=== PATIENT | male | born 1960 | race American Indian/Alaskan Native ===

== ENCOUNTER 2022-06-04 15:50 | Inpatient (IN) | payer MEDICARE, OTHER ==
[2022-06-04] MEDS ORDERED: SODIUM CHLORIDE 0.9% 1000 ML 1,000 ML IV ONE (16:30)
--- NOTE | 2022-06-04 16:38 | Emergency Department Report ---
ED GI Bleed HPI - General Chief complaint: GI Bleed Stated complaint: SPITTING UP BLOOD Time Seen by Provider: 06/04/22 16:05 Source: EMS Mode of arrival: Stretcher Limitations: No Limitations - History of Present Illness Initial comments: Patient is a 61-year-old male presenting to ED with complaint of gross hematemesis beginning today. States he has history of "busted blood vessel in his lungs "that occurred 3 years ago requiring blood transfusion and surgical procedure at [place] 3 years ago. He denies any abdominal pain or history of liver disease. He is not on blood thinners. - Related Data Previous Rx's Medication Instructions Recorded Last Taken Type Albuterol Mdi (or & Nicu Only) 2 puff IH QID PRN #1 inhalation 04/17/15 Unknown Rx [ProAir HFA Inhaler] levoFLOXacin [Levaquin TAB] 750 mg PO Q24HR #2 tablet 06/22/16 Unknown Rx Allergies Allergy/AdvReac Type Severity Reaction Status Date / Time No Known Allergies Allergy Verified 06/04/22 16:00 ED Review of Systems ROS: Stated complaint: SPITTING UP BLOOD Other details as noted in HPI Constitutional: denies: chills, fever Respiratory: denies: cough, shortness of breath, wheezing Cardiovascular: denies: chest pain, palpitations Gastrointestinal: hematemesis. denies: abdominal pain Genitourinary: denies: urgency, dysuria Musculoskeletal: denies: back pain, joint swelling, arthralgia Skin: denies: rash, lesions Neurological: denies: headache, weakness, paresthesias Psychiatric: denies: anxiety, depression ED Past Medical Hx - Past Medical History Hx Hypertension: Yes Hx Congestive Heart Failure: No Hx Diabetes: Yes Hx Asthma: No Hx COPD: Yes Hx HIV: No Additional medical history: TB 2004 - Surgical History Additional Surgical History: Fixed ruptured blood vessels in lung - Social History Smoking Status: Former Smoker Substance Use Type: None - Medications Home Medications: Home Medications Medication Instructions Recorded Confirmed Last Taken Type Albuterol Mdi (or & Nicu Only) 2 puff IH QID PRN #1 inhalation 04/17/15 Unknown Rx [ProAir HFA Inhaler] levoFLOXacin [Levaquin TAB] 750 mg PO Q24HR #2 tablet 06/22/16 Unknown Rx ED Physical Exam - General Limitations: No Limitations General appearance: alert, in no apparent distress - Head Head exam: Present: atraumatic, normocephalic - Eye Pupils: Present: other (Dried blood on lips, blood in oropharynx) - Respiratory Respiratory exam: Present: normal lung sounds bilaterally. Absent: respiratory distress - Cardiovascular Cardiovascular Exam: Present: normal rhythm, tachycardia, normal heart sounds - GI/Abdominal GI/Abdominal exam: Present: soft. Absent: distended, tenderness - Rectal Rectal exam: Present: deferred - Neurological Exam Neurological exam: Present: alert, oriented X3 - Psychiatric Psychiatric exam: Present: normal affect, normal mood - Skin Skin exam: Present: warm, dry, intact, normal color ED Course Vital Signs 06/04/22 06/04/22 06/04/22 15:56 20:11 20:13 Temperature 97.5 F L Pulse Rate 116 H 90 Respiratory 18 18 Rate Blood Pressure 260/120 117/78 [Left] O2 Sat by Pulse 99 97 98 Oximetry ED Medical Decision Making - Lab Data Result diagrams: 06/04/22 16:10 06/04/22 16:10 - Medical Decision Making H&H 13 and 40. Labs are grossly unremarkable. Patient given 1 L saline bolus and started on Protonix drip. CTA chest, abdomen and pelvis unremarkable. I discussed case with on-call GI physician . Patient is currently stable. States he will evaluate patient in the morning for endoscopy. Will admit to hospitalist. Critical care attestation.: If time is entered above; I have spent that time in minutes in the direct care of this critically ill patient, excluding procedure time. ED Disposition Clinical Impression: Upper GI bleed, Hematemesis Disposition: ADMITTED INPATIENT Is pt being admited?: Yes Condition: Stable
[2022-06-04 16:45] LABS: Basophils # (Auto) 0.1 K/mm3 (0.0-0.1); Basophils % (Auto) 0.9 % (0.0-1.8); Eosinophils # (Auto) 0.3 K/mm3 (0.0-0.4); Eosinophils % (Auto) 4.4 % (0.0-4.3); Hematocrit 40.3 % (35.5-45.6); Hemoglobin 13.1 gm/dl (11.8-15.2); Lymphocytes # (Auto) 3.1 K/mm3 (1.2-5.4); Lymphocytes % (Auto) 43.3 % (13.4-35.0); Mean Corpuscular HGB Conc 32 % (32-34); Mean Corpuscular Volume 92 fl (84-94); Monocytes # (Auto) 0.9 K/mm3 (0.0-0.8); Monocytes % (Auto) 13.2 % (0.0-7.3); Platelet Count 291 K/mm3 (140-440); Red Blood Count 4.37 M/mm3 (3.65-5.03); Red Cell Distribution Width 14.3 % (13.2-15.2)
[2022-06-04 16:48] LABS: INR 0.92 (0.87-1.13)
[2022-06-04 16:49] LABS: Partial Thromboplastin Time 25.2 Sec. (24.2-36.6)
[2022-06-04 16:56] LABS: Alanine Aminotransferase 34 units/L (7-56); Albumin 4.2 g/dL (3.9-5); BUN/Creatinine Ratio 9; Blood Urea Nitrogen 8 mg/dL (9-20); Calcium 8.9 mg/dL (8.4-10.2); Hemolysis Index 5
--- NOTE | 2022-06-04 18:27 | Cat Scan Report ---
CTA CHEST WITH CONTRAST INDICATION / CLINICAL INFORMATION: Hemoptysis versus hematemesis. TECHNIQUE: Axial CT images were obtained through the chest after injection of 75 mL Omnipaque 350 IV contrast. 3 plane MIP and/or 3D reconstructions were produced. All CT scans at this location are perf ormed using CT dose reduction for ALARA by means of automated exposure control. COMPARISON: CT dated 06/19/2016 and 08/03/2015 FINDINGS: PULMONARY EMBOLUS: None. Main pulmonary artery is dilated measuring 3.7 cm in transverse dimension, u nchanged. THORACIC AORTA: No significant abnormality. HEART: No significant abnormality. CORONARY ARTERY CALCIFICATION: Present -- Mild. MEDIASTINUM / MERLE: Mildly prominent mediastinal lymph nodes are unchanged and may be reactive. PLEURA: No pleural effusion. No pneumothorax. LUNGS: Postoperative findings related to previous right upper lobe surgery appears similar to previou s studies. There is scarring versus atelectasis in the right upper lobe with bronchiectasis and fibro sis. Mild left upper lobe bronchiectasis and fibrosis is unchanged. Lower lobes demonstrate mild subp leural scarring but no acute airspace disease. ADDITIONAL FINDINGS: None. UPPER ABDOMEN: No acute findings. SKELETAL STRUCTURES: No significant osseous abnormality. IMPRESSION: 1. No CT evidence for pulmonary embolism. 2. Moderate lobe postsurgical findings and scarring appears unchanged since prior studies. Left upper lobe scarring and fibrosis also appears unchanged. 3. No acute pneumonia. Signer Name: Erika Kraus MD Signed: 06/04/2022 6:23 PM Workstation Name: [id number]
--- NOTE | 2022-06-04 18:30 | Cat Scan Report ---
CTA ABDOMEN AND PELVIS WITHOUT AND WITH CONTRAST INDICATION / CLINICAL INFORMATION: Hemoptysis versus hematemesis. Rule out GI bleed. TECHNIQUE: Axial CT images were obtained through the abdomen and pelvis with injection of 100 mL Omni paque 350 IV contrast. 3 plane MIP / 3D reconstructions were produced. All CT scans at this location are performed using CT dose reduction for ALARA by means of automated exposure control. COMPARISON: CTA chest dated 06/19/16. No prior abdomen for comparison. FINDINGS: AORTA: No significant abnormality. RENAL ARTERIES: No significant abnormality. CELIAC ARTERY: No significant abnormality. SUPERIOR MESENTERIC ARTERY: No significant abnormality. INFERIOR MESENTERIC ARTERY: No significant abnormality. RIGHT ILIAC ARTERIES: Mild atherosclerosis.. LEFT ILIAC ARTERIES: Mild atherosclerosis.. ADDITIONAL FINDINGS: No acute bowel abnormality. No gastrointestinal bleed is identified. SKELETAL: No significant abnormality. IMPRESSION: 1. No arterial abnormality of the abdomen or pelvis. 2. No gastric intestinal bleeding identified. Signer Name: Erika Kraus MD Signed: 06/04/2022 6:26 PM Workstation Name: [id number]
[2022-06-04] MEDS ORDERED: ACETAMINOPHEN 325 MG TAB PO PRN ×2 (21:02→23:52)
[2022-06-04] MEDS ORDERED: ONDANSETRON 4 MG/2 ML INJ IV PRN ×2 (21:02→23:52)
[2022-06-04] MEDS ORDERED: MORPHINE 4 MG/1 ML INJ IV PRN (21:02)
[2022-06-04] MEDS ORDERED: MORPHINE 2 MG/1 ML INJ IV PRN (21:02)
[2022-06-04] MEDS: PANTOPRAZOLE 80 MG in SODIUM CHLORIDE 0.9% 100 ML IV SCH (22:59)
[2022-06-05 00:51] LABS: Hematocrit 37.3 % (35.5-45.6); Hemoglobin 12.1 gm/dl (11.8-15.2)
[2022-06-05] MEDS: SODIUM CHLORIDE 0.9% 1000 ML 1,000 ML IV SCH ×2 (02:27→13:31)
[2022-06-05 05:59] LABS: Basophils % (Auto) 0.4 % (0.0-1.8); Eosinophils # (Auto) 0.1 K/mm3 (0.0-0.4); Eosinophils % (Auto) 2.8 % (0.0-4.3); Hematocrit 39.8 % (35.5-45.6); Hemoglobin 12.9 gm/dl (11.8-15.2); Lymphocytes # (Auto) 1.6 K/mm3 (1.2-5.4); Lymphocytes % (Auto) 32.5 % (13.4-35.0); Mean Corpuscular HGB Conc 32 % (32-34); Mean Corpuscular Volume 92 fl (84-94); Monocytes # (Auto) 0.6 K/mm3 (0.0-0.8); Monocytes % (Auto) 12.4 % (0.0-7.3); Platelet Count 235 K/mm3 (140-440); Red Blood Count 4.32 M/mm3 (3.65-5.03); Red Cell Distribution Width 14.2 % (13.2-15.2)
[2022-06-05 06:19] LABS: Alanine Aminotransferase 29 units/L (7-56); Albumin 3.8 g/dL (3.9-5); BUN/Creatinine Ratio 8; Blood Urea Nitrogen 7 mg/dL (9-20); Calcium 8.8 mg/dL (8.4-10.2); Hemolysis Index 4
--- NOTE | 2022-06-05 07:34 | History and Physical Report ---
History of Present Illness Date of examination: 06/04/22 Date of admission: 06/04/22 21:02 Chief complaint: Complains of vomiting blood 1 hour ago History of present illness: 60-year-old male comes into the emergency room for vomiting blood which is copious. Patient has a history of vomiting blood in the past which she attributes to pulmonary tuberculosis which was treated in the past at [place]. Patient had blood transfusion and embolization at that point. It was done in [place]. Other than vomiting but patient does not have any abdominal pain or any other symptoms. Patient is not lightheaded. No presyncope. No dizziness on standing. No fever or chills. - Past Medical History --Hypertension: Yes --Diabetes: Yes --COPD: Yes --Additional medical history: TB 2004 - Surgical History --Additional Surgical History: Fixed ruptured blood vessels in lung - Social History --Smoking Status: Former Smoker --Substance Use Type: None - Medications Home Medications: Home Medications Medication Instructions Recorded Confirmed Last Taken Type Albuterol Mdi (or & Nicu Only) 2 puff IH QID PRN #1 inhalation 04/17/15 Unknown Rx [ProAir HFA Inhaler] levoFLOXacin [Levaquin TAB] 750 mg PO Q24HR #2 tablet 06/22/16 Unknown Rx Review of Systems ROS: Stated complaint: SPITTING UP BLOOD Other details as noted in HPI Constitutional: denies: chills, fever Respiratory: denies: cough, shortness of breath, wheezing Cardiovascular: denies: chest pain, palpitations Gastrointestinal: hematemesis. denies: abdominal pain Genitourinary: denies: urgency, dysuria Musculoskeletal: denies: back pain, joint swelling, arthralgia Skin: denies: rash, lesions Neurological: denies: headache, weakness, paresthesias Psychiatric: denies: anxiety, depression Medications and Allergies Allergies Allergy/AdvReac Type Severity Reaction Status Date / Time No Known Allergies Allergy Verified 06/04/22 16:00 Home Medications Medication Instructions Recorded Confirmed Last Taken Type Albuterol Mdi (or & Nicu Only) 2 puff IH QID PRN #1 inhalation 04/17/15 Unknown Rx [ProAir HFA Inhaler] Active Meds: Active Medications Acetaminophen (Acetaminophen 325 Mg Tab) 650 mg PO Q4H PRN PRN Reason: Pain MILD(1-3)/Fever >100.5/RIVERA Pantoprazole Sodium 80 mg/ (Sodium Chloride) 100 mls @ 10 mls/hr IV DIRECT DOUGLAS Last Admin: 06/04/22 22:59 Dose: 8 mg/hr, 10 mls/hr Sodium Chloride (Nacl 0.9% 1000 Ml) 1,000 mls @ 75 mls/hr IV DIRECT DOUGLAS Last Admin: 06/05/22 02:27 Dose: 75 mls/hr Morphine Sulfate (Morphine 2 Mg/1 Ml Inj) 2 mg IV Q4H PRN PRN Reason: Pain, Moderate (4-6) Morphine Sulfate (Morphine 4 Mg/1 Ml Inj) 4 mg IV Q4H PRN PRN Reason: Pain , Severe (7-10) Ondansetron HCl (Ondansetron 4 Mg/2 Ml Inj) 4 mg IV Q8H PRN PRN Reason: Nausea And Vomiting Sodium Chloride (Sodium Chloride 0.9% 10 Ml Flush Syringe) 10 ml IV BID DOUGLAS Last Admin: 06/04/22 22:27 Dose: 10 ml Sodium Chloride (Sodium Chloride 0.9% 10 Ml Flush Syringe) 10 ml IV PRN PRN PRN Reason: LINE FLUSH Exam - Constitutional Vitals: Temp Pulse Resp BP Pulse Ox 98.1 F 88 18 105/73 100 06/05/22 02:15 06/05/22 02:15 06/05/22 02:15 06/05/22 02:15 06/05/22 02:15 General appearance: Present: no acute distress, well-nourished - EENT Eyes: Present: PERRL ENT: hearing intact, clear oral mucosa - Neck Neck: Present: supple, normal ROM - Respiratory Respiratory effort: normal Respiratory: bilateral: CTA - Cardiovascular Heart rate: 78 Rhythm: regular Heart Sounds: Present: S1 & S2. Absent: rub, click - Extremities Extremities: pulses symmetrical, No edema Peripheral Pulses: within normal limits - Abdominal General gastrointestinal: Present: soft, non-tender, non-distended, normal bowel sounds Male genitourinary: Present: normal - Integumentary Integumentary: Present: clear, warm, dry - Musculoskeletal Musculoskeletal: gait normal, strength equal bilaterally - Psychiatric Psychiatric: appropriate mood/affect, intact judgment & insight - Neurologic Neurologic: CNII-XII intact, moves all extremities Results - Labs CBC & Chem 7: 06/05/22 05:05 06/05/22 05:05 Labs: Laboratory Last Values WBC 4.9 K/mm3 (4.5-11.0) 06/05/22 05:05 RBC 4.32 M/mm3 (3.65-5.03) 06/05/22 05:05 Hgb 12.9 gm/dl (11.8-15.2) 06/05/22 05:05 Hct 39.8 % (35.5-45.6) 06/05/22 05:05 MCV 92 fl (84-94) 06/05/22 05:05 MCH 30 pg (28-32) 06/05/22 05:05 MCHC 32 % (32-34) 06/05/22 05:05 RDW 14.2 % (13.2-15.2) 06/05/22 05:05 Plt Count 235 K/mm3 (140-440) 06/05/22 05:05 Lymph % (Auto) 32.5 % (13.4-35.0) 06/05/22 05:05 [place] % (Auto) 12.4 % (0.0-7.3) H 06/05/22 05:05 Eos % (Auto) 2.8 % (0.0-4.3) 06/05/22 05:05 Baso % (Auto) 0.4 % (0.0-1.8) 06/05/22 05:05 Lymph # (Auto) 1.6 K/mm3 (1.2-5.4) 06/05/22 05:05 [place] # (Auto) 0.6 K/mm3 (0.0-0.8) 06/05/22 05:05 Eos # (Auto) 0.1 K/mm3 (0.0-0.4) 06/05/22 05:05 Baso # (Auto) 0.0 K/mm3 (0.0-0.1) 06/05/22 05:05 Seg Neutrophils % 51.9 % (40.0-70.0) 06/05/22 05:05 Seg Neutrophils # 2.6 K/mm3 (1.8-7.7) 06/05/22 05:05 PT 13.4 Sec. (12.2-14.9) 06/04/22 16:10 INR 0.92 (0.87-1.13) 06/04/22 16:10 APTT 25.2 Sec. (24.2-36.6) 06/04/22 16:10 Sodium 143 mmol/L (137-145) 06/05/22 05:05 Potassium 4.2 mmol/L (3.6-5.0) 06/05/22 05:05 Chloride 106.3 mmol/L (98-107) 06/05/22 05:05 Carbon Dioxide 29 mmol/L (22-30) 06/05/22 05:05 Anion Gap 12 mmol/L 06/05/22 05:05 BUN 7 mg/dL (9-20) L 06/05/22 05:05 Creatinine 0.9 mg/dL (0.8-1.3) 06/05/22 05:05 Estimated GFR > 60 ml/min 06/05/22 05:05 BUN/Creatinine Ratio 8 % 06/05/22 05:05 Glucose 80 mg/dL (75-100) 06/05/22 05:05 Lactic Acid 1.90 mmol/L (0.7-2.0) 06/04/22 16:10 Calcium 8.8 mg/dL (8.4-10.2) 06/05/22 05:05 Total Bilirubin 0.40 mg/dL (0.1-1.2) 06/05/22 05:05 AST 35 units/L (5-40) 06/05/22 05:05 ALT 29 units/L (7-56) 06/05/22 05:05 Alkaline Phosphatase 60 units/L (35-129) 06/05/22 05:05 Total Protein 6.6 g/dL (6.3-8.2) 06/05/22 05:05 Albumin 3.8 g/dL (3.9-5) L 06/05/22 05:05 Albumin/Globulin Ratio 1.4 % 06/05/22 05:05 Blood Type O POSITIVE 06/04/22 16:10 Antibody Screen Negative 06/04/22 16:10 Short CBC 06/04/22 06/05/22 06/05/22 Range/Units 16:10 00:39 05:05 WBC 7.1 4.9 (4.5-11.0) K/mm3 Hgb 13.1 12.1 12.9 (11.8-15.2) gm/dl Hct 40.3 37.3 39.8 (35.5-45.6) % Plt Count 291 235 (140-440) K/mm3 BMP 06/04/22 06/05/22 16:10 05:05 Sodium 140 143 Potassium 4.0 4.2 Chloride 102.9 106.3 Carbon Dioxide 30 29 BUN 8 L 7 L Creatinine 0.9 0.9 Glucose 190 H 80 Calcium 8.9 8.8 Liver Function 06/04/22 06/05/22 Range/Units 16:10 05:05 Total Bilirubin 0.40 0.40 (0.1-1.2) mg/dL AST 46 H 35 (5-40) units/L ALT 34 29 (7-56) units/L Alkaline Phosphatase 66 60 (35-129) units/L Albumin 4.2 3.8 L (3.9-5) g/dL Perry/IV: Voiding Method Urinal Assessment and Plan Advance Directives: Yes (Full code) Plan of care discussed with patient/family: Yes - Patient Problems (1) Upper GI bleed Current Visit: Yes Status: Acute Plan to address problem: Patient initiated on IV Protonix drip No recent intake of NSAIDs or BC powder or Goody powders GI consult to rule out peptic ulcer disease or esophageal varices. Hemoglobin and hematocrit every 8 hours Transfuse if H&H below 8 and 24 (2) Hypertension Current Visit: Yes Status: Chronic Qualifiers: Hypertension type: primary hypertension Qualified Code(s): I10 - Essential (primary) hypertension Plan to address problem: Catapres patch if necessary (3) T2DM (type 2 diabetes mellitus) Current Visit: Yes Status: Chronic Qualifiers: Diabetes mellitus buttermaker continuous churn insulin use: without fpc use Plan to address problem: Coverage for now (4) COPD (chronic obstructive pulmonary disease) Current Visit: Yes Status: Acute Plan to address problem: DuoNebs as needed (5) DVT prophylaxis Current Visit: Yes Status: Acute Plan to address problem: On SCDs and GI prophylaxis (6) Advance care planning Current Visit: Yes Status: Acute Plan to address problem: Disease education conducted care plan discussed, diagnosis discussed and prognosis discussed. Patient is full code. Patient acknowledged full understanding with care plan. +30 minutes.
--- NOTE | 2022-06-05 09:31 | Electrocardiograph Report ---
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
[2022-06-05] MEDS: PANTOPRAZOLE 80 MG in SODIUM CHLORIDE 0.9% 100 ML IV SCH ×2 (10:09→22:59)
[2022-06-05 11:18] LABS: Hematocrit 36.6 % (35.5-45.6)
[2022-06-05] MEDS ORDERED: EPINEPHrine 1 MG/10 ML SYRINGE ONE (13:18)
--- NOTE | 2022-06-05 14:17 | Anesthesia Day of Surgery ---
Anesthesia Day of Surgery - Day of Surgery Patient Examined: Yes Patient H&P Reviewed: Yes Patient is NPO: Yes
--- NOTE | 2022-06-05 14:20 | Anesthesia Consultation ---
Anesthesia Consult and Med Hx Date of service: 06/05/22 - Airway Anesthetic Teeth Evaluation: Edentulous ROM Head & Neck: Adequate Mental/Hyoid Distance: Adequate Mallampati Class: Class II Intubation Access Assessment: Good - Pre-Operative Health Status ASA Pre-Surgery Classification: ASA2 Proposed Anesthetic Plan: MAC (GA if needed) - Pulmonary Hx Smoking: Yes (Former) Hx Asthma: No COPD: Yes Hx Pneumonia: No - Cardiovascular System Hx Hypertension: Yes - Central Nervous System Hx Psychiatric Problems: No - Gastrointestinal Hx Gastroesophageal Reflux Disease: No - Endocrine Hx End Stage Renal Disease: No Hx Non-Insulin Dependent Diabetes: Yes - Hematic Hx Anemia: No Hx Sickle Cell Disease: No - Other Systems Hx Substance Use: No Hx Obesity: No
[2022-06-05] MEDS ORDERED: propofoL 200 MG/20 ML VIAL IV ONE ×2 (14:25→14:40)
--- NOTE | 2022-06-05 14:27 | Consultation ---
History of Present Illness - Reason for Consult Consult date: 06/05/22 Hematemesis Requesting physician: TWAN RIVERA - History of Present Illness Mr. Winchester is a 61-year-old man who was in his usual state of good health until yesterday. He notes that he was coughing and spit up some bright red blood into a container. He had this occur several times and he presented to the emergency room. There, he was deemed to have had a copious amount, approximately 500 mL, of hematemesis and was admitted and GI consultation is requested. On further questioning of the patient, he states that the urinal that he brought in with the bloody fluid in it consisted mainly of urine and that he had spit up into that container. He denied true hematemesis. Patient states that he has had hemoptysis that was massive in the past and apparently related to lung disease with tuberculosis in the past. This was dealt with at [place]. He also states that he has had sinusitis in the past where 1 time he was spitting up bloody fluid. Currently, he denies any shortness of breath or excessive coughing. He does not have any complaints of headaches or maxillofacial pain. He denies fevers, chills, sweats. Patient denies any abdominal pain, NSAID use, known liver disease. He denies known history of GI bleed. He denies heartburn or dysphagia. Bowel movements are regular on a once a day basis and there is no history of hematochezia or melena. Past History Past Medical History: other (History of tuberculosis in the pasttreated in 2005.) Past Surgical History: Other (History of massive hemoptysis requiring intervention bronchoscopically from what the patient states, approximately 2017 or 2018.) Social history: no significant social history, smoking (Quit smoking in 2005). denies: alcohol abuse Family history: no significant family history Medications and Allergies Allergies Allergy/AdvReac Type Severity Reaction Status Date / Time No Known Allergies Allergy Verified 06/04/22 16:00 Home Medications Medication Instructions Recorded Confirmed Last Taken Type Albuterol Mdi (or & Nicu Only) 2 puff IH QID PRN #1 inhalation 04/17/15 Unknown Rx [ProAir HFA Inhaler] Active Meds: Active Medications Acetaminophen (Acetaminophen 325 Mg Tab) 650 mg PO Q4H PRN PRN Reason: Pain MILD(1-3)/Fever >100.5/RIVERA Pantoprazole Sodium 80 mg/ (Sodium Chloride) 100 mls @ 10 mls/hr IV DIRECT DOUGLAS Last Admin: 06/05/22 10:09 Dose: 8 mg/hr, 10 mls/hr Sodium Chloride (Nacl 0.9% 1000 Ml) 1,000 mls @ 75 mls/hr IV DIRECT DOUGLAS Last Admin: 06/05/22 13:31 Dose: 75 mls/hr Morphine Sulfate (Morphine 2 Mg/1 Ml Inj) 2 mg IV Q4H PRN PRN Reason: Pain, Moderate (4-6) Morphine Sulfate (Morphine 4 Mg/1 Ml Inj) 4 mg IV Q4H PRN PRN Reason: Pain , Severe (7-10) Ondansetron HCl (Ondansetron 4 Mg/2 Ml Inj) 4 mg IV Q8H PRN PRN Reason: Nausea And Vomiting Sodium Chloride (Sodium Chloride 0.9% 10 Ml Flush Syringe) 10 ml IV BID DOUGLAS Last Admin: 06/05/22 10:10 Dose: 10 ml Sodium Chloride (Sodium Chloride 0.9% 10 Ml Flush Syringe) 10 ml IV PRN PRN PRN Reason: LINE FLUSH Review of Systems All systems: negative (As per HPI) Exam - Constitutional Vitals: Temp Pulse Resp BP Pulse Ox 98.4 F 89 18 114/62 100 06/05/22 10:51 06/05/22 10:51 06/05/22 10:51 06/05/22 10:51 06/05/22 10:51 General appearance: Present: no acute distress - EENT Eyes: Present: PERRL, EOM intact ENT: hearing intact - Respiratory Respiratory effort: normal Respiratory: bilateral: CTA (Anteriorly) - Cardiovascular Rhythm: regular Heart Sounds: Present: S1 & S2 - Extremities Extremities: No edema - Abdominal General gastrointestinal: Present: soft, non-tender, normal bowel sounds Results - Labs CBC & Chem 7: 06/05/22 11:05 06/05/22 05:05 Labs: Abnormal lab results 06/04/22 06/04/22 06/05/22 Range/Units 16:10 16:10 05:05 Lymph % (Auto) 43.3 H (13.4-35.0) % [place] % (Auto) 13.2 H 12.4 H (0.0-7.3) % Eos % (Auto) 4.4 H (0.0-4.3) % [place] # (Auto) 0.9 H (0.0-0.8) K/mm3 Seg Neutrophils % 38.2 L (40.0-70.0) % BUN 8 L (9-20) mg/dL Glucose 190 H (75-100) mg/dL AST 46 H (5-40) units/L Albumin (3.9-5) g/dL 06/05/22 Range/Units 05:05 Lymph % (Auto) (13.4-35.0) % [place] % (Auto) (0.0-7.3) % Eos % (Auto) (0.0-4.3) % [place] # (Auto) (0.0-0.8) K/mm3 Seg Neutrophils % (40.0-70.0) % BUN 7 L (9-20) mg/dL Glucose (75-100) mg/dL AST (5-40) units/L Albumin 3.8 L (3.9-5) g/dL - Imaging and Cardiology CT scan - abdomen: report reviewed (Essentially normal) CT scan - chest: report reviewed (Chronic changes in the lungs) Assessment and Plan 1. Hematemesisby history, patient has not had hematemesis. Hemoglobin has been stable and labs are otherwise unremarkable. It seems like he is spitting up blood and it may be more from his sinuses, though bronchial tree is also a consideration. If he truly had massive amounts, up, it would have to be from the GI tract since he is not having any pulmonary symptoms. However, I do not believe he had copious bleeding, I believe most of it was the urine mixed with a little bit of a blood in his spit as he states. Discussed with patient and advised that most likely, blood in spit may have been from sinuses or bronchi, though difficult to definitively exclude GI tract without endoscopy. I advised him that it was extremely low likelihood that it was a GI process, but patient wished to and so we will proceed with an upper endoscopy to exclude any problem. We will do upper endoscopy to exclude any upper GI pathology. If negative, will defer to hospitalist for any further evaluation, though patient seems to be doing well and can likely be worked up as outpatient.
[2022-06-05] MEDS ORDERED: LIDOCAINE MPF (2%) 20 MG/1 ML VIAL 5 ML ONE (14:39)
--- NOTE | 2022-06-05 14:50 | Post Operative Note ---
Pre-op diagnosis: Hematemesis Post-op diagnosis: other (2 small gastric AVMs, no UGI bleed. Blood noted in back of throat.) Findings: 1. Normal esophagus with nonobstructing esophageal ring at Z-line at 35 cm from the gums. 2. 2 tiny gastric AVMs noted in proximal body measuring about 2 or 3 mm. No evidence of bleeding. 3. Otherwise normal stomach with no evidence of source of bleeding. There was a trace amount of blood in the gastric lumen that appeared to be swallowed blood. 4. Normal duodenal bulb and duodenum Procedure: EGD Anesthesia: MAC Surgeon: TAMMY MULLIGAN Estimated blood loss: none Pathology: none Condition: stable Disposition: floor (Consider ENT or pulmonary Evaluation as blood is coming from aero pharyngeal region. No GI bleeding. We will sign off.)
--- NOTE | 2022-06-05 15:13 | Operative Report ---
DATE OF SURGERY: 06/05/2022 PROCEDURE: Upper endoscopy. PREOPERATIVE DIAGNOSES: Hematemesis. POSTOPERATIVE DIAGNOSIS: Sinopulmonary source of bleeding, with normal upper endoscopy except for two small arteriovenous malformations. SEDATION: MAC by anesthesia. HISTORY: The patient is a 61-year-old man who presented with what he states was spitting up blood. He had spit it up into a urinal full of urine however, and when seen in the ER, he was reported to be having copious hematemesis. His hemoglobin is normal. He denies any GI symptoms. He does have a history of pulmonary disease as well as sinus disease. Procedure, indications, risks, and benefits were explained and consent was obtained from the patient. DESCRIPTION OF PROCEDURE: The patient was placed in left lateral decubitus position and sedated. Endoscope was passed through the mouth and oropharynx into the descending duodenum and then gradually withdrawn, with close inspection of the mucosa. FINDINGS: 1. Normal-appearing esophagus with nonobstructing ring at the Z line at 35 cm from the gums. No evidence of bleeding source. 2. Two tiny AVMs noted in the gastric body proximally, measuring 2 and 3 mm, with no stigmata of bleeding. 3. Gastric lumen is otherwise normal, with minimal amount of blood noted that was in the form of clot and likely swallowed. Gastric mucosa was otherwise well seen and appeared to be normal. 4. Normal-appearing duodenal bulb and duodenum. The patient tolerated the procedure well without immediate complication. IMPRESSION: 1. 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 2. No evidence of upper gastrointestinal bleeding source or pathology found. RECOMMENDATIONS: Consider ENT or pulmonary evaluation for source of bleeding. Please note that there was trace of fresh red clot noted in the back of the throat. TID: [id number] RECEIPT: [id number] C/DORIAN
[2022-06-05 16:09] LABS: Hematocrit 37.5 % (35.5-45.6); Hemoglobin 12.5 gm/dl (11.8-15.2)
--- NOTE | 2022-06-05 16:09 | Post Anesthesia Evaluation ---
- Post Anesthesia Evaluation Patient Participated: Yes Airway Patent: Yes Stable Respiratory Function: Yes Nausea/Vomiting: No Temp > 96.8F: Yes Pain Manageable: Yes Adequeate Hydration: Yes Anesthesia Complications: No Block Receding Appropriately: Not Applicable Patient on Ventilator: No
--- NOTE | 2022-06-05 20:04 | Discharge Summary ---
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: without terminal press operator use (4) COPD (chronic obstructive pulmonary disease) Status: Acute (5) DVT prophylaxis Status: Acute (6) Advance care planning Status: Acute Core Measure Documentation - Palliative Care Palliative Care/ Comfort Measures: Not Applicable - Core Measures Any of the following diagnoses?: none Exam - Constitutional Vitals: Temp Pulse Resp BP Pulse Ox 98.7 F 87 18 107/72 98 06/05/22 14:51 06/05/22 15:11 06/05/22 15:11 06/05/22 15:11 06/05/22 15:11 General appearance: Present: no acute distress, well-nourished - EENT Eyes: Present: PERRL ENT: hearing intact, clear oral mucosa - Neck Neck: Present: supple, normal ROM - Respiratory Respiratory effort: normal Respiratory: bilateral: CTA - Cardiovascular Heart rate: 78 Rhythm: regular Heart Sounds: Present: S1 & S2. Absent: rub, click - Extremities Extremities: no ischemia, pulses intact, pulses symmetrical, No edema Peripheral Pulses: within normal limits - Abdominal General gastrointestinal: Present: soft, non-tender, non-distended, normal bowel sounds Male genitourinary: Present: normal - Rectal Rectal Exam: deferred - Integumentary Integumentary: Present: clear, warm, dry - Musculoskeletal Musculoskeletal: gait normal, strength equal bilaterally - Psychiatric Psychiatric: appropriate mood/affect, intact judgment & insight - Neurologic Neurologic: CNII-XII intact, moves all extremities - Allied Health Allied health notes reviewed: nursing, case management Plan Activity: no restrictions Follow up with: PRIMARY CARE, [Primary Care Provider] - 3-5 Days Prescriptions: levoFLOXacin [Levaquin] 750 mg PO QDAY #8 tablet RX: prednisoLONE [Millipred 5mg (12 day - 48 tab dosepak)] 5 mg PO QDAY #8 Pantoprazole [Protonix] 40 mg PO QDAY #30 tablet
[2022-06-06] MEDS: guaiFENesin 100 MG/5 ML ORAL LIQD PO PRN ×2 (01:56→23:20)
[2022-06-06] MEDS: SODIUM CHLORIDE 0.9% 1000 ML 1,000 ML IV SCH (01:59)
--- NOTE | 2022-06-06 08:25 | Progress Note ---
Assessment and Plan - Patient Problems (1) Upper GI bleed Current Visit: Yes Status: Acute Plan to address problem: Patient initiated on IV Protonix drip No recent intake of NSAIDs or BC powder or Goody powders GI consult to rule out peptic ulcer disease or esophageal varices. Hemoglobin and hematocrit every 8 hours Transfuse if H&H below 8 and 24 (2) Hypertension Current Visit: Yes Status: Chronic Qualifiers: Hypertension type: primary hypertension Qualified Code(s): I10 - Essential (primary) hypertension Plan to address problem: Catapres patch if necessary (3) T2DM (type 2 diabetes mellitus) Current Visit: Yes Status: Chronic Qualifiers: Diabetes mellitus skilled nursing insulin use: without skilled nursing use Plan to address problem: Coverage for now (4) COPD (chronic obstructive pulmonary disease) Current Visit: Yes Status: Acute Plan to address problem: DuoNebs as needed (5) DVT prophylaxis Current Visit: Yes Status: Acute Plan to address problem: On SCDs and GI prophylaxis (6) Advance care planning Current Visit: Yes Status: Acute Plan to address problem: Disease education conducted care plan discussed, diagnosis discussed and prognosis discussed. Patient is full code. Patient acknowledged full understanding with care plan. +30 minutes. Subjective Date of service: 06/05/22 Objective - Constitutional Vitals: Vital Signs - 12hr 06/05/22 06/06/22 06/06/22 20:39 01:00 05:29 Temperature 98.5 F 98.4 F Pulse Rate 88 82 Respiratory 17 17 18 Rate Blood Pressure 126/69 114/68 O2 Sat by Pulse 89 93 92 Oximetry General appearance: Present: no acute distress, well-nourished - EENT Eyes: PERRL, EOM intact ENT: hearing intact, clear oral mucosa Ears: bilateral: normal - Neck Neck: supple, normal ROM - Respiratory Respiratory effort: normal Respiratory: bilateral: CTA - Breasts Breasts: normal - Cardiovascular Rhythm: regular Heart Sounds: Present: S1 & S2. Absent: gallop, rub Extremities: pulses intact, No edema, normal color, Full ROM - Gastrointestinal General gastrointestinal: Present: soft, non-tender, non-distended, normal bowel sounds - Genitourinary Male genitourinary: normal - Integumentary Integumentary: clear, warm, dry - Musculoskeletal Musculoskeletal: 1, strength equal bilaterally - Neurologic Neurologic: moves all extremities - Psychiatric Psychiatric: memory intact, appropriate mood/affect, intact judgment & insight - Labs CBC & Chem 7: 06/05/22 15:20 06/05/22 05:05
--- NOTE | 2022-06-06 08:27 | Event Note ---
Date: 06/05/22 Tried discharging the patient on Protonix and oral antibiotics. Patient continued to be hypoxic on room air with sats around 88% to 90%. We will get a chest x-ray. Desirae ruiz in the meantime. If oxygen saturations improved will discharge in the morning.
[2022-06-06] MEDS: PANTOPRAZOLE 40 MG TAB PO SCH (13:27)
[2022-06-06 20:21] LABS: Hematocrit 34.9 % (35.5-45.6); Hemoglobin 11.7 gm/dl (11.8-15.2); Mean Corpuscular HGB Conc 33 % (32-34); Mean Corpuscular Volume 91 fl (84-94); Platelet Count 212 K/mm3 (140-440); Red Blood Count 3.82 M/mm3 (3.65-5.03); Red Cell Distribution Width 13.8 % (13.2-15.2)
[2022-06-06] MEDS: methylPREDNISolone Sod Succinate 125 MG/2 ML INJ IV SCH (21:50)
[2022-06-06] MEDS: FLUTICASONE PROPIONATE NASAL SPRAY 16 GM NS SCH (23:15)
[2022-06-07] MEDS: methylPREDNISolone Sod Succinate 125 MG/2 ML INJ IV SCH ×2 (05:50→13:00)
[2022-06-07] MEDS: guaiFENesin 100 MG/5 ML ORAL LIQD PO PRN (05:50)
--- NOTE | 2022-06-07 08:22 | Progress Note ---
Assessment and Plan - Patient Problems (1) Upper GI bleed Current Visit: Yes Status: Acute Plan to address problem: Patient initiated on IV Protonix drip No recent intake of NSAIDs or BC powder or Goody powders GI consult to rule out peptic ulcer disease or esophageal varices. Hemoglobin and hematocrit every 8 hours Transfuse if H&H below 8 and 24 (2) Hypertension Current Visit: Yes Status: Chronic Qualifiers: Hypertension type: primary hypertension Qualified Code(s): I10 - Essential (primary) hypertension Plan to address problem: Catapres patch if necessary (3) T2DM (type 2 diabetes mellitus) Current Visit: Yes Status: Chronic Qualifiers: Diabetes mellitus fpc insulin use: without fpc use Plan to address problem: Coverage for now (4) COPD (chronic obstructive pulmonary disease) Current Visit: Yes Status: Acute Plan to address problem: DuoNebs as needed (5) DVT prophylaxis Current Visit: Yes Status: Acute Plan to address problem: On SCDs and GI prophylaxis (6) Advance care planning Current Visit: Yes Status: Acute Plan to address problem: Disease education conducted care plan discussed, diagnosis discussed and prognosis discussed. Patient is full code. Patient acknowledged full understanding with care plan. +30 minutes. Subjective Date of service: 06/06/22 Objective - Constitutional Vitals: Vital Signs - 12hr 06/06/22 06/06/22 06/07/22 20:46 22:00 00:00 Temperature 99.1 F Pulse Rate 103 H Respiratory 18 17 Rate Blood Pressure 146/77 O2 Sat by Pulse 98 98 98 Oximetry 06/07/22 04:36 Temperature 97.7 F Pulse Rate 76 Respiratory 18 Rate Blood Pressure 121/76 O2 Sat by Pulse 99 Oximetry General appearance: Present: no acute distress, well-nourished - EENT Eyes: PERRL, EOM intact ENT: hearing intact, clear oral mucosa Ears: bilateral: normal - Neck Neck: supple, normal ROM - Respiratory Respiratory effort: normal Respiratory: bilateral: CTA - Breasts Breasts: normal - Cardiovascular Rhythm: regular Heart Sounds: Present: S1 & S2. Absent: gallop, rub Extremities: pulses intact, No edema, normal color, Full ROM - Gastrointestinal General gastrointestinal: Present: soft, non-tender, non-distended, normal bowel sounds - Genitourinary Male genitourinary: normal - Integumentary Integumentary: clear, warm, dry - Musculoskeletal Musculoskeletal: 1, strength equal bilaterally - Neurologic Neurologic: moves all extremities - Psychiatric Psychiatric: memory intact, appropriate mood/affect, intact judgment & insight - Labs CBC & Chem 7: 06/06/22 19:30 06/05/22 05:05 Labs: Abnormal lab results 06/06/22 Range/Units 19:30 Hgb 11.7 L (11.8-15.2) gm/dl Hct 34.9 L (35.5-45.6) %
[2022-06-07] MEDS: PANTOPRAZOLE 40 MG TAB PO SCH (09:08)
[2022-06-07] MEDS: FLUTICASONE PROPIONATE NASAL SPRAY 16 GM NS SCH (09:11)
[2022-06-07 16:54] VITALS: BP 129/70
== END 2022-06-07 18:25 | disposition home or self-care (01) | DRG 379 ==
LOC: ED 15:50 → 3A 21:02
PROVIDERS: ADMIT Internal Medicine; ATTEND Internal Medicine
PROC: 0DJ08ZZ Inspection of Upper Intestinal Tract, Via Natural or Artificial Opening Endoscopic (ICD-10-PCS; principal; 2022-06-05)
DX: K92.2 Gastrointestinal hemorrhage, unspecified (principal); E11.9 Type 2 diabetes mellitus without complications; I10 Essential (primary) hypertension; J44.9 Chronic obstructive pulmonary disease, unspecified; K31.819 Angiodysplasia of stomach and duodenum without bleeding; Z87.891 Personal history of nicotine dependence
CPT/HCPCS: 36415; 71275; 74174; 80053; 82140; 85014; 85018; 85025; 85027; 85610; 85730; 86850; 86900; 86901; 93005; 94760; G0378; C9113; J0171; J2704; J2930; J7030; Q9967